=== PATIENT | female | born 1940 | race Caucasian/White ===

== ENCOUNTER → 2016-05-09 | Outpatient (CLI) | payer MEDICARE ==
[2016-05-09 09:21] LABS: AUTOMATED NEUTROPHIL # 2.6 TH/MM3 (1.8-7.7); BASOPHIL % 0.6 % (0.0-2.0); EOSINOPHIL # 0.1 TH/MM3 (0-0.4); EOSINOPHIL % 3.1 % (0.0-4.0); HEMATOCRIT 36.2 % (35.0-46.0); HEMO FLAGS DIFF FINAL; LYMPH % 28.9 % (9.0-44.0); LYMPHOCYTE # 1.3 TH/MM3 (1.0-4.8); MONO % 11.7 % (0.0-8.0); NEUT % 55.7 % (16.0-70.0); PLATELET COUNT 265 TH/MM3 (150-450); RED BLOOD COUNT 3.98 MIL/MM3 (4.00-5.30); RED CELL DISTRIBUTION WIDTH 12.2 % (11.6-17.2); WHITE BLOOD COUNT 4.5 TH/MM3 (4.0-11.0)
[2016-05-09 14:27] LABS: ALKALINE PHOSPHATASE 89 U/L (45-117); ALT (GPT) 23 U/L (10-53); ANION GAP 9 MEQ/L (5-15); AST (GOT) 24 U/L (15-37); BICARBONATE 28.5 MEQ/L (21.0-32.0); BLOOD UREA NITROGEN 11 MG/DL (7-18); CHLORIDE 105 MEQ/L (98-107); FREE T3 2.74 PG/ML (2.18-3.98); FREE T4 1.01 NG/DL (0.76-1.46); GLOMERULAR FILTRATION RATE 54 ML/MIN (>89); GLUCOSE,FASTING 83 MG/DL (74-99); HDL CHOLESTEROL 93.6 MG/DL (40.0-60.0); LDL CHOLESTEROL 121 MG/DL (0-99); SODIUM (NA) 142 MEQ/L (136-145); TOTAL BILIRUBIN ADULT 0.7 MG/DL (0.2-1.0)
[2016-05-09 16:03] LABS: BACTERIA, URINE RARE /hpf; BLOOD, URINE NEG (NEG); COMMENT (UR) CULT NOT INDICATED; CULTURE IF INDICATED CULT NOT INDICATED; GLUCOSE,URINE NEG (NEG); KETONE, URINE NEG (NEG); MUCUS URINE FEW /lpf (OCC); NITRITE,URINE NEG (NEG); PH, URINE 5.5 (5.0-8.5); URINE COLOR YELLOW (YELLW/STRAW)
== END ==
LOC: OLAB 09:02
PROVIDERS: ATTEND Family Medicine
DX: E78.9 Disorder of lipoprotein metabolism, unspecified (principal); E71.30 Disorder of fatty-acid metabolism, unspecified; E78.5 Hyperlipidemia, unspecified; R53.83 Other fatigue; F32.9 Major depressive disorder, single episode, unspecified; M79.1 Myalgia; M79.644 Pain in right finger(s); M81.0 Age-related osteoporosis without current pathological fracture; M85.80 Other specified disorders of bone density and structure, unspecified site
CPT/HCPCS: 36415; 80053; 80061; 81001; 82043; 82607; 82652; 84439; 84443; 84481; 85025

== ENCOUNTER → 2017-04-15 | Outpatient (CLI) | payer MEDICARE ==
[2017-04-15 09:19] LABS: AUTOMATED NEUTROPHIL # 3.7 TH/MM3 (1.8-7.7); BASOPHIL % 0.4 % (0.0-2.0); EOSINOPHIL # 0.1 TH/MM3 (0-0.4); EOSINOPHIL % 1.6 % (0.0-4.0); HEMATOCRIT 36.8 % (35.0-46.0); HEMOGLOBIN 12.7 GM/DL (11.6-15.3); LYMPH % 24.5 % (9.0-44.0); LYMPHOCYTE # 1.5 TH/MM3 (1.0-4.8); MEAN CORPUSCULAR HEMOGLOBIN 31.8 PG (27.0-34.0); MEAN CORPUSCULAR HGB CONC 34.6 % (32.0-36.0); MONO % 11.7 % (0.0-8.0); MONOCYTE # 0.7 TH/MM3 (0-0.9); NEUT % 61.8 % (16.0-70.0); PLATELET COUNT 249 TH/MM3 (150-450); RED CELL DISTRIBUTION WIDTH 12.7 % (11.6-17.2)
[2017-04-15 13:19] LABS: BACTERIA, URINE RARE /hpf; BILIRUBIN, URINE NEG (NEG); BLOOD, URINE NEG (NEG); GLUCOSE,URINE NEG (NEG); KETONE, URINE NEG (NEG); MUCUS URINE FEW /lpf (OCC); NITRITE,URINE NEG (NEG); SQUAMOUS EPITHELIAL CELL URINE 1 /hpf (0-5); TRANSITIONAL EPI CELLS, URINE 2 /hpf; URINE COLOR YELLOW (YELLW/STRAW); URINE LEUKOCYTE ESTERASE LARGE (NEG)
[2017-04-15 13:36] LABS: ALBUMIN 3.9 GM/DL (3.4-5.0); ALT (GPT) 23 U/L (10-53); AST (GOT) 24 U/L (15-37); BICARBONATE 27.7 MEQ/L (21.0-32.0); BLOOD UREA NITROGEN 17 MG/DL (7-18); CALCIUM 8.6 MG/DL (8.5-10.1); CHLORIDE 106 MEQ/L (98-107); CHOLESTEROL 206 MG/DL (120-200); CREATININE 1.01 MG/DL (0.50-1.00); GLOMERULAR FILTRATION RATE 54 ML/MIN (>89); GLUCOSE,FASTING 77 MG/DL (74-99); SODIUM (NA) 139 MEQ/L (136-145); TRIGLYCERIDES 53 MG/DL (42-150)
[2017-04-15 14:01] LABS: ALKALINE PHOSPHATASE 90 U/L (45-117); CHOLESTEROL/ HDL RATIO 2.48 RATIO; FREE T3 2.93 PG/ML (2.18-3.98); FREE T4 0.95 NG/DL (0.76-1.46); HDL CHOLESTEROL 82.9 MG/DL (40.0-60.0); LDL CHOLESTEROL 113 MG/DL (0-99); TOTAL BILIRUBIN ADULT 0.4 MG/DL (0.2-1.0); TOTAL PROTEIN 7.6 GM/DL (6.4-8.2)
== END ==
LOC: OLAB 08:48
PROVIDERS: ATTEND Family Medicine
DX: E78.9 Disorder of lipoprotein metabolism, unspecified (principal); R53.83 Other fatigue; R82.90 Unspecified abnormal findings in urine
CPT/HCPCS: 36415; 80053; 80061; 81001; 82043; 82607; 84439; 84443; 84481; 85025; 87086